=== PATIENT | male | born 1985 | race Hispanic/Latino ===

== ENCOUNTER 2018-04-21 08:56 | Emergency (ER) | payer OTHER | END 2018-04-21 09:53 | disposition home or self-care (01) | LOC: EDH 08:56 | DX: L08.9 Local infection of the skin and subcutaneous tissue, unspecified (principal); R22.0 Localized swelling, mass and lump, head; Z72.0 Tobacco use ==

== ENCOUNTER 2023-08-28 23:55 | Emergency (ER) | payer OTHER ==
[~2023-08-28] VITALS: Ht 172.7 cm; Wt 68.0 kg
[2023-08-28 23:57] VITALS: BP 114/68; PULSE 62; RESP 20
[2023-08-29] MEDS: FLUORESCEIN SODIUM 1 STRIP STRIP OP SCH (00:30)
[2023-08-29] MEDS: TETRACAINE HCL 0.5% 4 ML OPHTH SOLN OP SCH (00:30)
== END 2023-08-29 01:00 | disposition home or self-care (01) ==
LOC: EDH 23:55
DX: S05.00XA Injury of conjunctiva and corneal abrasion without foreign body, unspecified eye, initial encounter (principal); X58.XXXA Exposure to other specified factors, initial encounter; Y93.89 Activity, other specified; Y92.89 Other specified places as the place of occurrence of the external cause; Y99.8 Other external cause status
CPT/HCPCS: 99281